=== PATIENT | female | born 1985 | race Caucasian/White ===

== ENCOUNTER → 2018-11-19 | Outpatient (CLI) | payer BC | LOC: OD 11:07 | PROVIDERS: ATTEND Obstetrics & Gynecology | DX: O20.0 Threatened abortion (principal) | CPT/HCPCS: 36415; 84702; 86900; 86901 ==

== ENCOUNTER → 2019-01-16 | Outpatient (CLI) | payer BC | LOC: OD 12:31 | PROVIDERS: ATTEND Nurse Practitioner Primary Care | DX: Z34.90 Encounter for supervision of normal pregnancy, unspecified, unspecified trimester (principal) | CPT/HCPCS: 36415; 84702 ==

== ENCOUNTER → 2019-01-20 | Outpatient (CLI) | payer BC | LOC: OD 16:39 | PROVIDERS: ATTEND Nurse Practitioner Primary Care | DX: Z32.01 Encounter for pregnancy test, result positive (principal); Z34.90 Encounter for supervision of normal pregnancy, unspecified, unspecified trimester | CPT/HCPCS: 36415; 84702 ==

== ENCOUNTER 2019-08-21 16:05 | Outpatient (CLI) | payer BC ==
--- NOTE | 2019-08-21 17:30 | Non Stress Test Report ---
Non Stress Test Datetime Report Generated by CPN: 08/21/2019 17:30 DEMOGRAPHIC EGA NST: 35.2 INDICATION Indication for Study (NST) Other: provider order VITAL SIGNS Temperature - NST: 98.7 Pulse - NST: 85 RESP - NST: 18 NBPSYS NST: 118 NBPDIA NST: 59 MONITORING Monitor Explained: Monitor Explained; Test Explained; Patient Verbalized Understanding Time on Monitor: 08/21/2019 16:20 Time off Monitor: 08/21/2019 17:20 NST Duration: 60 NST INTERVENTIONS NST Interventions: PO Hydration Physician Notified NST: Dr. CWebb BABY A: [id number] BABY A Movement : Present Contraction Frequency : none FHR Baseline : 135 Accelerations : 15X15 Decelerations : None Variability : Moderate 6-25bpm NST Review: Meets Criteria for Reactive NST NST Review and Verified By : aRdha Youssef RNC NST Results: Reactive NST REPORT Report Trigger: Send Report
== END 2019-08-21 17:32 | disposition home or self-care (01) ==
LOC: LC 16:05
PROVIDERS: ATTEND Obstetrics & Gynecology Gynecology
DX: Z34.83 Encounter for supervision of other normal pregnancy, third trimester (principal); Z3A.35 35 weeks gestation of pregnancy
CPT/HCPCS: 59025; 82962

== ENCOUNTER 2019-08-26 17:00 | Outpatient (CLI) | payer BC ==
[2019-08-26] MEDS ORDERED: BETAMET ACET/BETAMET NA INJ 6 MG/1 ML IM ONE (17:30)
[2019-08-26] MEDS ORDERED: BETAMET ACET/BETAMET NA INJ 6 MG/1 ML ONE (17:35)
[2019-08-26 18:13] LABS: APPEARANCE,URINE SLIGHTLY-CLOUDY; BILIRUBIN,URINE NEGATIVE (NEGATIVE); COLOR,URINE YELLOW; GLUCOSE, URINE 50 mg/dL (NEGATIVE); KETONES,URINE NEGATIVE (NEGATIVE); LEUKOCYTE ESTERASE,URINE LARGE (NEGATIVE); NITRITE,URINE NEGATIVE (NEGATIVE); PROTEIN,URINE NEGATIVE (NEGATIVE); URINE SPECIFIC GRAVITY 1.009; UROBILINOGEN,URINE NEGATIVE mg/dL (<2.0)
--- NOTE | 2019-08-26 18:54 | Non Stress Test Report ---
Non Stress Test Datetime Report Generated by CPN: 08/26/2019 18:54 DEMOGRAPHIC Test Number: 2 EGA NST: 36.0 VITAL SIGNS Temperature - NST: 99.4 Pulse - NST: 85 RESP - NST: 16 NBPSYS NST: 117 NBPDIA NST: 76 MONITORING Monitor Explained: Monitor Explained; Test Explained; Patient Verbalized Understanding Time on Monitor: 08/26/2019 17:04 Time off Monitor: 08/26/2019 18:30 NST Duration: 86 NST INTERVENTIONS NST Interventions: PO Hydration; Reposition Patient BABY A: [id number] BABY A Movement : Present Contraction Frequency : 0 FHR Baseline : 125 Accelerations : 15X15 Decelerations : None Variability : Moderate 6-25bpm NST Review: Meets Criteria for Reactive NST NST Review and Verified By : BL DANNALUND, RN NST Results: Reactive NST REPORT Report Trigger: Send Report
[2019-08-26 18:56] LABS: URINE AMPHETAMINES SCREEN NEGATIVE; URINE BARBITURATES SCREEN NEGATIVE; URINE BENZODIAZEPINES SCREEN NEGATIVE; URINE COCAINE SCREEN NEGATIVE; URINE MARIJUANA (THC) SCREEN NEGATIVE; URINE METHADONE SCREEN NEGATIVE; URINE PHENCYCLIDINE SCREEN NEGATIVE
== END 2019-08-26 18:48 | disposition home or self-care (01) ==
LOC: LC 17:00
PROVIDERS: ATTEND Student in an Organized Health Care Education/Training Program
PROC: 4A1HXCZ Monitoring of Products of Conception, Cardiac Rate, External Approach (ICD-10-PCS; principal; 2019-08-26)
DX: O41.03X0 Oligohydramnios, third trimester, not applicable or unspecified (principal); O32.1XX0 Maternal care for breech presentation, not applicable or unspecified; Z3A.36 36 weeks gestation of pregnancy
CPT/HCPCS: 81005; 80307; 59025; J0702

== ENCOUNTER → 2019-08-27 | Outpatient (CLI) | payer BC ==
[~2019-08-27] MED LIST: BETAMET ACET/BETAMET NA INJ 6 MG/1 ML IM ONE; BETAMET ACET/BETAMET NA INJ 6 MG/1 ML ONE
== END ==
LOC: LC 17:17
PROVIDERS: ATTEND Obstetrics & Gynecology
PROC: 4A1HXCZ Monitoring of Products of Conception, Cardiac Rate, External Approach (ICD-10-PCS; principal; 2019-08-27)
DX: Z36.89 Encounter for other specified antenatal screening (principal)
CPT/HCPCS: 59025; 96372; J0702

== ENCOUNTER 2019-08-28 11:13 | Inpatient (IN) | payer BC ==
[~2019-08-28 11:13] MED LIST changes: -BETAMET ACET/BETAMET NA INJ 6 MG/1 ML IM ONE; -BETAMET ACET/BETAMET NA INJ 6 MG/1 ML ONE; +PHENYLEPHRINE HCL INJ/PF 10 MG/1 ML SDV ONE
[2019-08-28 11:54] LABS: APPEARANCE,URINE SLIGHTLY-CLOUDY; BILIRUBIN,URINE NEGATIVE (NEGATIVE); COLOR,URINE YELLOW; GLUCOSE, URINE 50 mg/dL (NEGATIVE); KETONES,URINE NEGATIVE (NEGATIVE); LEUKOCYTE ESTERASE,URINE LARGE (NEGATIVE); NITRITE,URINE NEGATIVE (NEGATIVE); PROTEIN,URINE NEGATIVE (NEGATIVE); URINE SPECIFIC GRAVITY 1.015; UROBILINOGEN,URINE NEGATIVE mg/dL (<2.0)
[2019-08-28] MEDS ORDERED: RINGERS SOLUTION,LACTATED 1,500 ML IV PRN (12:02)
[2019-08-28] MEDS ORDERED: RINGERS SOLUTION,LACTATED 1,000 ML IV PRN ×2 (12:07→13:04)
[2019-08-28 12:08] LABS: URINE AMPHETAMINES SCREEN NEGATIVE; URINE BARBITURATES SCREEN NEGATIVE; URINE BENZODIAZEPINES SCREEN NEGATIVE; URINE COCAINE SCREEN NEGATIVE; URINE MARIJUANA (THC) SCREEN NEGATIVE; URINE METHADONE SCREEN NEGATIVE; URINE PHENCYCLIDINE SCREEN NEGATIVE
[2019-08-28] MEDS ORDERED: RINGERS SOLUTION,LACTATED 1,000 ML IV ONE (13:04)
--- NOTE | 2019-08-28 13:19 | Admission Physical ---
Datetime Report Generated by CPN: 08/28/2019 13:19 CURRENT ADMISSION Chief Complaint: Suspected Ruptured Membranes Indication for Induction: Not Applicable Admit Impression : , Intrauterine ; No Active Labor; Intact Membranes; Primary Section Admit Plan: Admit to Unit; Initiate Section Protocol ALLERGIES Medication Allergies: No Medication Allergies: No Known Drug Allergies (08/28/2019) Latex: No Latex Allergies Food Allergies: none Environmental Allergies: none OBSTETRICAL HISTORY EDC: 09/23/2019 00:00 : 2 Para: 0 Term: 0 : 0 SAB: 1 IAB: 0 Ectopic: 0 Livin Cesareans: 0 VBACs: 0 Multiple Births: 0 Gestational Diabetes: No Rh Sensitization: No Incompetent Cervix: No ELICIA: No Infertility: No ART Treatment: No Uterine Anomaly: No IUGR: No Hx Previous C/S: No Macrosomia: No Hx Loss/Stillborn: No PIH: No Hx : No Placenta Previa/Abruption: No Depression/PP Depression: No PTL/PROM: No Post Hemorrhage: No Current Procedures: Ultrasound; NST Obstetrical History Comments: Oligo SEE RECORDS Alcohol: No Marijuana : No Cocaine: No Other Illicit Drugs: No Cigarettes: Never Smoker. [id number] MEDICAL HISTORY Diabetes: No Blood Transfusion: No Pulmonary Disease (Asthma, TB): No Breast Disease: No Hypertension: No Kennel Manager Surgery: No Heart Disease: No Hosp/Surgery: No Autoimmune Disorder: No Anesthetic Complications: No Kidney Disease: No Abnormal Pap Smear: No Neuro/Epilepsy: No Psychiatric Disorders: No Other Medical Diseases: No Hepatitis/Liver Disease: No Significant Family History: No Varicosities/Phlebitis: No Trauma/Violence : No Thyroid Dysfunction: No INFECTIOUS HISTORY Gonorrhea: No Genital Herpes: No Chlamydia: No Tuberculosis: No Syphilis: No Hepatitis: No HIV/AIDS Exposure: No Rash or Viral Illness: No HPV: No PHYSICAL EXAM General: Normal HEENT: Normal Neurologic: Normal Thyroid: Deferred Heart: Normal Lungs: Normal Breast: Deferred Back: Normal Abdomen: Normal Genitourinary Exam: Normal Extremities: Normal DTRs: Normal Pelvic Type: Adequate Vital Signs: Reviewed FETUS A EGA: 36.2 Monitoring: External US FHR- Baseline: 165 Variability: Moderate 6-25bpm Accelerations: 15X15 Decelerations: None FHR Category: Category I Presentation: Breech Admit Comment: 33yo at 36+2ega presents for decreased amniotic fluid. Actimprom was negative. Total YAKOV 3.64 and reactive NST then over 4min decel without association with contraction. Breech. Reviewed need for section. Reviewed need for delivery now with deceleration and oligohydramnios. EFW on 08/12 was 6#2oz. GBS negative. o/w uncomplicated. BMZ given on 08/25 and 08/26. NICU aware. Admit and plan Primary section. PLANS FOR LABOR AND DELIVERY Labor and Delivery: None Feeding Preference: Breast Benefit of Breast Feed Discussed: Yes Circumcision: Yes INFORMED CONSENT Informed Consent Obtained: Section Delivery; Risks, Benefits and Alternatives Discussed Signature: with User ID: [email or web address]
[2019-08-28] MEDS ORDERED: CEFAZOLIN SODIUM 2 GM in DEXTROSE 5%-WATER 50 ML IV PRN (13:21)
[2019-08-28] MEDS ORDERED: CEFAZOLIN 1 GM/D5W RTU 2 GM/100 ML RTUPB IV ONE (13:23)
[2019-08-28] MEDS ORDERED: CITRIC ACID/SODIUM CITRATE ORAL SOLN 15 ML UDCUP ONE (13:23)
[2019-08-28] MEDS ORDERED: MIDAZOLAM 2 MG/2 ML INJ ONE (13:26)
[2019-08-28] MEDS ORDERED: FENTANYL CITRATE INJ/PF 100 MCG/2 ML AMPUL ONE (13:26)
[2019-08-28] MEDS ORDERED: OXYTOCIN 10 UNIT/ML VIAL ONE (13:26)
[2019-08-28] MEDS ORDERED: ONDANSETRON HCL INJ/PF 4 MG/2 ML SDV ONE (13:27)
[2019-08-28] MEDS ORDERED: OXYTOCIN/NORMAL SALINE 20 UNIT/1,000 ML RTUINJ ONE (13:27)
[2019-08-28] MEDS ORDERED: ACETAMINOPHEN 1,000 MG/100 ML RTUPB IV ONE (13:27)
[2019-08-28] MEDS ORDERED: MORPHINE SULFATE 10 MG/ML INJ ONE ×2 (13:27→16:09)
[2019-08-28 13:39] LABS: HEMATOCRIT 33.6 % (36.0-47.0); HEMOGLOBIN 11.5 g/dL (12.0-15.5); MEAN CORPUSCULAR HEMOGLOBIN 30.6 pg (27.0-33.4); MEAN CORPUSCULAR HGB CONC 34.3 g/dL (32.0-36.0); MEAN CORPUSCULAR VOLUME 89 fl (80-97); PLATELET COUNT 300 10^3/uL (150-450); RED BLOOD COUNT 3.76 10^6/uL (3.72-5.28); RED CELL DISTRIBUTION WIDTH 15.1 % (11.5-14.0); WHITE BLOOD COUNT 18.8 10^3/uL (4.0-10.5)
[2019-08-28 14:08] LABS: ABSOLUTE LYMPHOCYTES# (MANUAL) 2.4 10^3/uL (0.5-4.7); ABSOLUTE MONOCYTES # (MANUAL) 1.1 10^3/uL (0.1-1.4); BAND NEUTROPHILS % (MANUAL) 1 % (3-5); BASOPHILS % (MANUAL) 0 % (0-2); EOSINOPHILS % (MANUAL) 0 % (0-6); LYMPHOCYTES % (MANUAL) 13 % (13-45); MONOCYTES % (MANUAL) 6 % (3-13); NUCLEATED RED BLOOD CELLS 1 /100 WBC (0); SEGMENTED NEUTROPHILS % (MAN) 80 % (42-78); TOTAL CELLS COUNTED 100
[2019-08-28 14:09] LABS: ANISOCYTOSIS SLIGHT; PLATELET COMMENT ADEQUATE; TOXIC GRANULATION SLIGHT
[2019-08-28] MEDS ORDERED: DIPH/PERTUSS(ACELL)/TETANUS VAC/PF 0.5 ML SYR (>=10YO) IM PRN (15:33)
[2019-08-28] MEDS ORDERED: ACETAMINOPHEN 1,000 MG/100 ML RTUPB IV PRN (15:33)
[2019-08-28] MEDS ORDERED: OXYTOCIN/NORMAL SALINE 20 UNIT/1,000 ML RTUINJ IV PRN (15:33)
[2019-08-28] MEDS ORDERED: MEASLES,MUMPS&RUBELLA VACC/PF 0.5 ML VIAL SUBCUT PRN (15:33)
[2019-08-28] MEDS ORDERED: HYDROMORPHONE HCL INJ/PF 2 MG/ML AMPULE IV PRN (15:33)
[2019-08-28] MEDS ORDERED: OXYCODONE-ACETAMINOPHEN 5-325 MG TABLET PO PRN (15:33)
[2019-08-28] MEDS ORDERED: SIMETHICONE 80 MG TAB.CHEW PO PRN (15:33)
[2019-08-28] MEDS ORDERED: ACETAMINOPHEN 325 MG TABLET PO PRN (15:33)
[2019-08-28] MEDS ORDERED: PROMETHAZINE HCL INJ 25 MG/1 ML VIAL IV PRN (15:33)
--- NOTE | 2019-08-28 16:23 | Warning Signs in Babies ---
VOD Warning Signs Datetime Report Generated by [facility]: 08/28/2019 16:23 VOD#608 -Warning Signs in Babies: Needs to be viewed. (08/21/2019 16:23:China Wong RN)
[2019-08-28] MEDS ORDERED: KETOROLAC TROMETHAMINE INJ/PF 30 MG/1 ML SDV ONE (16:44)
--- NOTE | 2019-08-28 17:05 | Delivery Summary ---
Del Sum A-C Datetime Report Generated by CPN: 08/28/2019 17:04 DELIVERY PERSONNEL DELIVERY PERSONNEL: [id number] Delivery Doctor:: Cande Hanson MD Anesthesiologist:: Larry Moran MD STOCKROOM HELPER:: Kemal Hoffman CRNA Labor and Delivery Nurse:: Praveena Choi RNoffset printing pressmen Nurse:: China Wong RN Print Operator:: Praveena Trinidad RN Neonatal Nurse Practitioner:: ALAYNA De Guzman Nursery Nurse:: Leilani Card RN Nursery Nurse:: Kedar Multani RN Grocery Checker/PRESCHOOL DISABILITY TEACHER: ST Dimitrios Grocery Checker/PRESCHOOL DISABILITY TEACHER: Camilla Li, WINDOWS SYSTEMS ENGINEER MATERNAL INFORMATION Delivery Anesthesia: Spinal Medications After Delivery: Pitocin Bolus-Please Comment Meds After Delivery Comment: 20 Units/1000 ml NSS Delivery QBL: 795 Maternal Complications: None LABOR SUMMARY EDC: 09/23/2019 00:00 No. Babies in Womb: 1 Attempted: No Labor Anesthesia: None LABOR INFORMATION Reason for Induction: Not Applicable Oxytocin: N/A Group B Beta Strep: negative Antibiotics # of Doses: 1 Name of Antibiotic Given: Ancef Steroids Given: None Reason Steroids Not Administered: Not Applicable MEMBRANES Membranes Rupture Method: Artificial Rupture of Membranes: 08/28/2019 14:14 Length of Rupture (hr): 0.03 Amniotic Fluid Color: Clear Amniotic Fluid Amount: Scant Amniotic Fluid Odor: Normal STAGES OF LABOR Stage 3 hr: 0 Stage 3 min: 1 VAGINAL DELIVERY Episiotomy: None Laceration #1: None Laceration Extension #1: N/A Laceration Repair: Not Applicable Sponge Count Correct: N/A Sharps Count Correct: N/A CSECTION DELIVERY Primary Indication: Nonreassuring Status Other Primary Indication: Breech Secondary Indication: N/A Other Secondary Indication: N/A CSection Urgency: Non-Scheduled CSection Incidence: Primary Labor: No Labor Elective: Nonelective CSection Incision: Lower Uterine Transverse BABY A INFORMATION Infant Delivery Date/Time: 08/28/2019 14:16 Method of Delivery: Nurse Controlled Delivery: No Born in Route : No : N/A Forceps: N/A Vacuum Extraction: N/A Shoulder Dystocia : No PRESENTATION/POSITION BABY A Presentation: Breech Cephalic Presentation: N/A Vertex Position: N/A Breech Presentation: Complete PLACENTA INFORMATION BABY A Placenta Delivery Time : 08/28/2019 14:17 Placenta Method of Delivery: Manual Removal Placenta Status: Delivered SCORES BABY A Heart Rate 1 min: >100 bpm Resp Effort 1 min: Good Cry Reflex Irritability 1 min: Cough or Sneeze or Pulls Away Muscle Tone 1 min: Active Motion Color 1 min: Body [place], Extremities Blue Resuscitation Effort 1 min: Tactile Stimulation SCORE 1 MIN: 9 Heart Rate 5 min: >100 bpm Resp Effort 5 min: Good Cry Reflex Irritability 5 min: Cough or Sneeze or Pulls Away Muscle Tone 5 min: Active Motion Color 5 min: Body [place], Extremities Blue Resuscitation Effort 5 min: Tactile Stimulation SCORE 5 MIN: 9 INFORMATION BABY A Gestational Age at Delivery: 36.2 Gestational Status: Late - 34- 36.6 Weeks Infant Outcome : Liveborn Condition : Stable Infant Sex: Male IDENTIFICATION BABY A Infant Verification Date/Time: 08/28/2019 14:16 ID Band Number: [id number] Mother's Name Verified: Yes Infant RN Verifying : MMobley RN Additional Verifying Personnel: CSedgwick RN WEIGHT/LENGTH BABY A Infant Birthweight (gm): 3210 Weight (lb): 7 Infant Weight (oz): 1 Infant Length (in): 19.50 Length (cm): 49.53 CORD INFORMATION BABY A No. Cord Vessels: 3 Nuchal Cord : N/A True Knot: false knot and partial abruption Cord Blood Taken: Yes-For Eval (Mom's Blood Type - or O+) Suction: None ASSESSMENT BABY A Infant Complications: Oligohydramnios Physical Findings at Delivery: Other Physical Findings- Other: baby assessed by Wali [place] Skin to Skin: Yes Skin to Skin Time (min): 20 Rn Research/ALS Called : Yes Infant Care By: Tee Card RN Transferred To: Nursery BABY B INFORMATION : N/A
[2019-08-28] MEDS: OXYCODONE-ACETAMINOPHEN 5-325 MG TABLET PO PRN (17:42)
[2019-08-28] MEDS: DOCUSATE SODIUM 100 MG CAPSULE PO SCH (17:42)
--- NOTE | 2019-08-28 18:06 | Brief Operative Note ---
BRIEF OPERATIVE REPORT DATE OF SURGERY: 08/28/19 TIME OF SURGERY: 14:00 PREOPERATIVE DIAGNOSIS: 36+2ega, Oligohydramnios, Breech presentation, Non reassuring FHTs POSTOPERATIVE DIAGNOSIS: BALWINDER - delivered, partial abruption of placenta noted SURGEON: LUKAS CHRISTIE FINDINGS: 100ml of old clot and adherent to placenta consistent with partial abruption, cord with false knot noted. VMI delivered at 1416, weight 3210g (7#1 oz), Apgars 9/9, UOP 200ml, IVF 1000ml, EBL 600ml, QBL 795ml COMPLICATIONS: none ESTIMATED BLOOD LOSS: 600ml TISSUE REMOVED OR ALTERED: placenta and cord sent to pathology TECHNICAL PROCEDURE: Primary section
--- NOTE | 2019-08-28 20:42 | Operative Report ---
Operative Report DATE OF SURGERY: 08/28/19 PREOPERATIVE DIAGNOSIS: , 36+2ega, Oligohydramnios, Complete Breech pres entation, Non reassuring FHTs POSTOPERATIVE DIAGNOSIS: BALWINDER - delivered, partial abruption of placenta noted OPERATION: Primary section SURGEON: LUKAS CHRISTIE ANESTHESIA: Spinal TISSUE REMOVED OR ALTERED: placenta and cord sent to pathology COMPLICATIONS: none ESTIMATED BLOOD LOSS: 600 QUANTITATIVE BLOOD LOSS: 795 INTRAOPERATIVE FINDINGS: 100ml of old clot and adherent to placenta consistent with partial abruption, cord with false knot noted. VMI delivered at 1416, weight 3210g (7#1oz), Apgars 9/9, UOP 200ml, IVF 1000ml, EBL 600ml, QBL 795ml PROCEDURE: Anesthesia provider: [Colt Cook CRNA, Luisa BROOKS] Urine output: [200ml] IV fluids: [1000ml] Indications: [33yo presents from the office with noted worsening oligoh ydramnios (now YAKOV 3.64cm) and persistent breech presentation. IVF were intiated and initially FHR tracing was reactive and category I. However, 4 minute deceleration to the 80s was then noted with slow return to baseline and not associated with contraction. The patient was not having contractions. Due to significant oligohydramnios and now with 4 minuted deceleration and further concern for status reviewed with patient that would recommend section now. She was given BMZ on 08/25 and 08/26 due to concern for continued decrease in amniotic fluid on 08/24 of 5.64cm. The risks, benefits, alternatives to section were reviewed and she desired to proceed with planned procedure.] Procedure: The patient was taken to the operating room where spinal anesthesia was obtained and found to be adequate. She was then prepped and draped in the normal sterile fashion and placed in the dorsal supine position with a leftward tilt. A Pfannenstiel skin incision was then made and carried through to the underlying layers of the fascia with the scalpel. The fascia was incised in the midline and the incision extended laterally with the Michel scissors. The superior aspect of the fascial incision was then grasped with Randy clamps elevated and the underlying rectus muscles dissected off [bluntly]. Attention was then turned to the inferior aspect of the fascial incision which in a similar fashion was grasped, tented up with Randy clamps, and the rectus muscles dissected off [bluntly]. The rectus muscles were then in the midline and the peritoneum at the amount identified and entered [bluntly]. The peritoneal incision was then extended superiorly and inferiorly with good visualization of the bladder. The bladder blade was inserted and the vesicouterine peritoneum identified grasped with Greek pickups and entered sharply with the Metzenbaum scissors. This incision was then extended laterally with the Metzenbaum scissors and a bladder flap created digitally. The bladder blade was then reinserted and the lower uterine segment incised in a transverse fashion with the scalpel. The uterine incision was then extended bluntly and immediately clot delivered from uterine incision consistent with partial abruption. The bladder blade was removed and the was delivered from complete breech presentation atraumatically. The nose and mouth were suctioned and the cord doubly clamped and cut. And the infant was handed off to waiting pediatricians. The placenta was then delivered spontaneously (smal partial abruption noted) and the uterus exteriorized and cleared of all clots and debris. The uterine incision was then repaired with 1-0 Vicryl in a running locked fashion. A second layer of the same suture was used to obtain hemostasis via imbrication of the initial layer. The same suture was then used to place an O'leary suture on the left due to small hematoma near left uterine artery. The bladder flap was then repaired with 3-0 chromic in a running fashion. The uterus was returned to the patient's abdomen and Interceed was placed overlying the uterine incision to prevent adhesions. Surgicel was placed to assist with hemostasis. The gutters were cleared of all clots and debris. All operative sites were noted to be hemostatic. The fascia was reapproximated with 0 Vicryl in a running fashion from each lateral edge to the midline. The skin was closed with 3-0 Monocryl in a running subcuticular fashion with overlying Dermabond for additional dressing as well as wound closure. The patient tolerated the procedure well. Sponge lap needle and instrument counts are correct times 2. 3 g of Ancef were given prior to skin incision. The patient was taken to the recovery area awake and in stable condition.
[2019-08-28] MEDS ORDERED: KETOROLAC TROMETHAMINE INJ/PF 30 MG/1 ML SDV IV SCH (22:00)
[2019-08-29] MEDS: KETOROLAC TROMETHAMINE INJ/PF 30 MG/1 ML SDV IV SCH ×2 (01:44→09:14)
[2019-08-29] MEDS: OXYCODONE-ACETAMINOPHEN 5-325 MG TABLET PO PRN ×3 (05:37→16:20)
[2019-08-29 06:37] LABS: HEMATOCRIT 27.2 % (36.0-47.0); MEAN CORPUSCULAR HEMOGLOBIN 30.7 pg (27.0-33.4); MEAN CORPUSCULAR HGB CONC 34.1 g/dL (32.0-36.0); MEAN CORPUSCULAR VOLUME 90 fl (80-97); PLATELET COUNT 238 10^3/uL (150-450); RED BLOOD COUNT 3.02 10^6/uL (3.72-5.28); RED CELL DISTRIBUTION WIDTH 14.5 % (11.5-14.0); WHITE BLOOD COUNT 18.6 10^3/uL (4.0-10.5)
[2019-08-29 06:39] LABS: HEMOGLOBIN 9.3 g/dL (12.0-15.5)
[2019-08-29] MEDS: DOCUSATE SODIUM 100 MG CAPSULE PO SCH ×2 (09:15→18:16)
[2019-08-29] MEDS: PRENATAL VITAMIN W DHA CAPSULE PO SCH (09:15)
[2019-08-29] MEDS: IBUPROFEN 800 MG TABLET PO SCH ×4 (09:16→23:08)
--- NOTE | 2019-08-29 12:23 | PDOC PROGRESS REPORT ---
Subjective-OB Progress Note for:: 08/29/19 Subjective: Pt doing well, no concerns. She reports light bleeding, reg diet and +flatus. No difficulty voiding, ambulating well. Physical Exam (OB) Vital Signs: Temp Pulse Resp BP Pulse Ox 98.1 F 84 14 119/70 98 08/29/19 12:00 08/29/19 12:00 08/29/19 12:00 08/29/19 12:00 08/29/19 12:00 Intake & Output 08/28/19 08/29/19 08/30/19 06:59 06:59 06:59 Intake Total 900 Output Total 1210 Balance -310 Weight 105.7 kg - Dressing Removed: No Incision: Open Closure Type: Surgical Glue - Lochia Lochia Amount: Scant < 10 ml Lochia Color: Rubra/Red - Abdomen Description: Soft, Round Hernia Present: No Fundal Description: Firm, Midline Fundal Height: u/u - u/2 Objective-Diagnostic Laboratory: 08/29/19 06:17 08/28/19 08/28/19 08/29/19 13:20 13:20 06:17 WBC 18.8 H 18.6 H RBC 3.76 3.02 L Hgb 11.5 L 9.3 L D Hct 33.6 L 27.2 L MCV 89 90 MCH 30.6 30.7 MCHC 34.3 34.1 RDW 15.1 H 14.5 H Plt Count 300 238 Seg Neutrophils % Not Reportable Blood Type O POSITIVE Antibody Screen NEGATIVE Assessment and Plan(PN) - Assessment and Plan (1) Breech presentation Qualifiers: Fetus number: single or unspecified fetus Qualified Code(s): O32.1XX0 - Maternal care for breech presentation, not applicable or unspecified Is this a current diagnosis for this admission?: Yes (2) Oligohydramnios delivered Is this a current diagnosis for this admission?: Yes (3) S/P primary low transverse Is this a current diagnosis for this admission?: Yes - Time Spent with Patient Time with patient: Less than 15 minutes Medications reviewed and adjusted accordingly: Yes - Disposition Anticipated Discharge: Home Within: within 24 hours
[2019-08-30] MEDS: IBUPROFEN 800 MG TABLET PO SCH ×4 (05:34→23:23)
[2019-08-30] MEDS: PRENATAL VITAMIN W DHA CAPSULE PO SCH (09:24)
[2019-08-30] MEDS: DOCUSATE SODIUM 100 MG CAPSULE PO SCH ×2 (09:24→17:50)
--- NOTE | 2019-08-30 12:04 | PDOC PROGRESS REPORT ---
Subjective-OB Progress Note for:: 08/30/19 Subjective: Pt doing well, no concerns. Pain is well controlled. She reports light bleeding, reg diet and voiding without difficulty. Baby under bili lights, not going home. Physical Exam (OB) Vital Signs: Temp Pulse Resp BP Pulse Ox 99.9 F 85 18 135/77 H 100 08/30/19 11:41 08/30/19 11:41 08/30/19 11:41 08/30/19 11:41 08/30/19 11:41 Intake & Output 08/29/19 08/30/19 08/31/19 06:59 06:59 06:59 Intake Total 900 Output Total 1210 Balance -310 Weight 105.7 kg - Dressing Removed: No Incision: Well Approximated Closure Type: Sutures - Lochia Lochia Amount: Scant < 10 ml Lochia Color: Rubra/Red - Abdomen Description: Tender, Soft Hernia Present: No Fundal Description: Firm, Midline Fundal Height: u/u - u/2 Objective-Diagnostic Laboratory: 08/29/19 06:17 Assessment and Plan(PN) - Assessment and Plan (1) Breech presentation Qualifiers: Fetus number: single or unspecified fetus Qualified Code(s): O32.1XX0 - Maternal care for breech presentation, not applicable or unspecified Is this a current diagnosis for this admission?: Yes (2) Oligohydramnios delivered Is this a current diagnosis for this admission?: Yes (3) S/P primary low transverse Is this a current diagnosis for this admission?: Yes - Time Spent with Patient Time with patient: Less than 15 minutes Medications reviewed and adjusted accordingly: Yes - Disposition Anticipated Discharge: Home Within: within 24 hours
--- NOTE | 2019-08-30 12:46 | PDOC PROGRESS REPORT ---
Subjective-OB Progress Note for:: 08/30/19 Subjective: Pt doing well, no concerns. She reports light bleeding, reg diet with +flatus and voiding without difficulty. She is ambulatory, pain is controlled. Physical Exam (OB) Vital Signs: Temp Pulse Resp BP Pulse Ox 99.9 F 85 18 135/77 H 100 08/30/19 11:41 08/30/19 11:41 08/30/19 11:41 08/30/19 11:41 08/30/19 11:41 Intake & Output 08/29/19 08/30/19 08/31/19 06:59 06:59 06:59 Intake Total 900 Output Total 1210 Balance -310 Weight 105.7 kg - Dressing Removed: No Incision: Well Approximated Closure Type: Sutures - Lochia Lochia Amount: Scant < 10 ml Lochia Color: Rubra/Red - Abdomen Description: Tender, Soft Hernia Present: No Fundal Description: Firm, Midline Fundal Height: u/u - u/2 Objective-Diagnostic Laboratory: 08/29/19 06:17 Assessment and Plan(PN) - Assessment and Plan (1) Breech presentation Qualifiers: Fetus number: single or unspecified fetus Qualified Code(s): O32.1XX0 - Maternal care for breech presentation, not applicable or unspecified Is this a current diagnosis for this admission?: Yes (2) Oligohydramnios delivered Is this a current diagnosis for this admission?: Yes (3) S/P primary low transverse Is this a current diagnosis for this admission?: Yes - Time Spent with Patient Time with patient: Less than 15 minutes Medications reviewed and adjusted accordingly: Yes - Disposition Anticipated Discharge: Home Within: within 24 hours
[2019-08-31] MEDS: IBUPROFEN 800 MG TABLET PO SCH (06:34)
[2019-08-31 07:53] VITALS: BP 139/74
--- NOTE | 2019-08-31 08:46 | PDOC DISCHARGE SUMMARY ---
Impression - Admit/DC Date/PCP Admission Date/Primary Care Provider: 08/28/19 13:23 LUKAS CHRISTIE MD Discharge Date: 08/31/19 - Discharge Diagnosis (1) Breech presentation Is this a current diagnosis for this admission?: Yes (2) Oligohydramnios delivered Is this a current diagnosis for this admission?: Yes (3) S/P primary low transverse Is this a current diagnosis for this admission?: Yes - Additional Information Resuscitation Status: Full Code Discharge Diet: Regular Discharge Activity: Balance Activity w/Rest, No Lifting Over 10 Pounds, No Lifting/Push/Pulling, No tub bath Referrals: [facility] [Provider Group] (Please call [facility] for a 1 week incision check. ) Home Medications: Pnv No.95/Ferrous Fum/Folic AC [ Caplet] 1 cap PO DAILY 08/21/19 Vit D3-Vit K/[place]ber[place]/Hops [Ostera Tablet] 1 cap PO DAILY 08/21/19 HPI Reason(s) for Admission: Ceasarean Section-Primary, Obstetric Complications Procedures: None Intrapartum Procedure(s): : Low Cervical, Transverse Results Laboratory Results: WBC 18.6 10^3/uL (4.0-10.5) H 08/29/19 06:17 RBC 3.02 10^6/uL (3.72-5.28) L 08/29/19 06:17 Hgb 9.3 g/dL (12.0-15.5) L D 08/29/19 06:17 Hct 27.2 % (36.0-47.0) L 08/29/19 06:17 MCV 90 fl (80-97) 08/29/19 06:17 MCH 30.7 pg (27.0-33.4) 08/29/19 06:17 MCHC 34.1 g/dL (32.0-36.0) 08/29/19 06:17 RDW 14.5 % (11.5-14.0) H 08/29/19 06:17 Plt Count 238 10^3/uL (150-450) 08/29/19 06:17 Lymph % (Auto) Not Reportable 08/28/19 13:20 [place] % (Auto) Not Reportable 08/28/19 13:20 Eos % (Auto) Not Reportable 08/28/19 13:20 Baso % (Auto) Not Reportable 08/28/19 13:20 Absolute Neuts (auto) Not Reportable 08/28/19 13:20 Absolute Lymphs (auto) Not Reportable 08/28/19 13:20 Absolute Monos (auto) Not Reportable 08/28/19 13:20 Absolute Eos (auto) Not Reportable 08/28/19 13:20 Absolute Basos (auto) Not Reportable 08/28/19 13:20 Total Counted 100 08/28/19 13:20 Seg Neutrophils % Not Reportable 08/28/19 13:20 Seg Neuts % (Manual) 80 % (42-78) H 08/28/19 13:20 Band Neutrophils % 1 % (3-5) L 08/28/19 13:20 Lymphocytes % (Manual) 13 % (13-45) 08/28/19 13:20 Monocytes % (Manual) 6 % (3-13) 08/28/19 13:20 Eosinophils % (Manual) 0 % (0-6) 08/28/19 13:20 Basophils % (Manual) 0 % (0-2) 08/28/19 13:20 Abs Neuts (Manual) 15.2 10^3/uL (1.7-8.2) H 08/28/19 13:20 Abs Lymphs (Manual) 2.4 10^3/uL (0.5-4.7) 08/28/19 13:20 Abs Monocytes (Manual) 1.1 10^3/uL (0.1-1.4) 08/28/19 13:20 Absolute Eos (Manual) 0.0 10^3/uL (0.0-0.6) 08/28/19 13:20 Abs Basophils (Manual) 0.0 10^3/uL (0.0-0.2) 08/28/19 13:20 Nucleated RBCs 1 /100 WBC (0) 08/28/19 13:20 Toxic Granulation SLIGHT 08/28/19 13:20 Platelet Comment ADEQUATE 08/28/19 13:20 Anisocytosis SLIGHT 08/28/19 13:20 Urine Color YELLOW 08/28/19 11:22 Urine Appearance SLIGHTLY-CLOUDY 08/28/19 11:22 Urine pH 6.0 (5.0-9.0) 08/28/19 11:22 Ur Specific [place] 1.015 08/28/19 11:22 Urine Protein NEGATIVE mg/dL (NEGATIVE) 08/28/19 11:22 Urine Glucose (UA) 50 mg/dL (NEGATIVE) H 08/28/19 11:22 Urine Ketones NEGATIVE mg/dL (NEGATIVE) 08/28/19 11:22 Urine Blood NEGATIVE (NEGATIVE) 08/28/19 11:22 Urine Nitrite NEGATIVE (NEGATIVE) 08/28/19 11:22 Urine Bilirubin NEGATIVE (NEGATIVE) 08/28/19 11:22 Urine Urobilinogen NEGATIVE mg/dL (<2.0) 08/28/19 11:22 Ur Leukocyte Esterase LARGE (NEGATIVE) H 08/28/19 11:22 Urine WBC (Auto) 14 /HPF 08/28/19 11:22 Urine RBC (Auto) 2 /HPF 08/28/19 11:22 Urine Bacteria (Auto) 1+ /HPF 08/28/19 11:22 Squamous Epi Cells Auto 2 /HPF 08/28/19 11:22 Urine Mucus (Auto) OCC /LPF 08/28/19 11:22 Urine Ascorbic Acid NEGATIVE (NEGATIVE) 08/28/19 11:22 Membranes Rupture NEGATIVE (NEGATIVE) 08/28/19 11:22 Urine Opiates Screen NEGATIVE 08/28/19 11:22 Urine Methadone Screen NEGATIVE 08/28/19 11:22 Ur Barbiturates Screen NEGATIVE 08/28/19 11:22 Ur Phencyclidine Scrn NEGATIVE 08/28/19 11:22 Ur Amphetamines Screen NEGATIVE 08/28/19 11:22 U Benzodiazepines Scrn NEGATIVE 08/28/19 11:22 Urine Cocaine Screen NEGATIVE 08/28/19 11:22 U Marijuana (THC) Screen NEGATIVE 08/28/19 11:22 RPR NONREACTIVE (NONREACTIVE) 08/28/19 13:20 Blood Type O POSITIVE 08/28/19 13:20 Antibody Screen NEGATIVE 08/28/19 13:20 Plan Plan of Treatment: f/u at [facility] as scheduled for incision check Time Spent: Less than 30 Minutes
[2019-08-31] MEDS: DOCUSATE SODIUM 100 MG CAPSULE PO SCH (10:18)
[2019-08-31] MEDS: PRENATAL VITAMIN W DHA CAPSULE PO SCH (10:18)
== END 2019-08-31 12:27 | disposition home or self-care (01) | DRG 786 ==
LOC: LC 11:13 → LR 13:23 → 2N 17:37
PROVIDERS: ADMIT Student in an Organized Health Care Education/Training Program; ATTEND Student in an Organized Health Care Education/Training Program
PROC: 10D00Z1 Extraction of Products of Conception, Low, Open Approach (ICD-10-PCS; principal; 2019-08-28)
DX: O41.03X0 Oligohydramnios, third trimester, not applicable or unspecified (principal); O45.93 Premature separation of placenta, unspecified, third trimester; O32.1XX0 Maternal care for breech presentation, not applicable or unspecified; O76 Abnormality in fetal heart rate and rhythm complicating labor and delivery; O69.2XX0 Labor and delivery complicated by other cord entanglement, with compression, not applicable or unspecified; O69.89X0 Labor and delivery complicated by other cord complications, not applicable or unspecified; Z3A.36 36 weeks gestation of pregnancy; Z37.0 Single live birth
CPT/HCPCS: 1961; 36415; 80307; 81001; 84112; 85025; 85027; 86592; 86850; 86900; 86901; 88307; 94799; J0131; J0690; J1885; J2250; J2270; J2370; J2405; J2590; J3010; J3490